=== PATIENT | female | born 1995 | race Caucasian/White ===

== ENCOUNTER 2017-11-07 18:23 | Emergency (ER) | payer SELFPAY ==
[~2017-11-07] VITALS: Ht 165.1 cm; Wt 90.9 kg
[~2017-11-07 18:23] MED LIST: ADVAIR IH; ALBUTEROL0.09 MG/A4 IH; GUAIFEN/CODEIN120 ML PO; MOTRIN800 MG PO; OMEPRAZOLE MAGN20 MG PO; PROVENTIL0.09 MG/A1; RELION VEN0.09 MG/Ac IH; SINGULAIR10 MG PO; ULTRAM 50MG TAB50 MG PO; ULTRAM50 MG PO; VENTOLIN0.09 MG IH; ZYRTEC 10MG10 MG PO
[2017-11-07 20:35] VITALS: BP 148/84
== END 2017-11-07 20:35 | disposition home or self-care (01) ==
LOC: ED 18:23
DX: S69.92XA Unspecified injury of left wrist, hand and finger(s), initial encounter (principal); W19.XXXA Unspecified fall, initial encounter

== ENCOUNTER 2020-12-01 01:03 | Emergency (ER) | payer SELFPAY ==
[2020-12-01 02:20] LABS: BASO # 0.05 (0.02-0.10); EOS # 0.11 (0.04-0.40); EOS % 0.8 % (1.0-5.0); HEMATOCRIT 41.4 % (37.0-47.0); HEMOGLOBIN 13.5 g/dL (12.5-16.0); LYMPH# 4.68 (1.50-4.00); MEAN CELL VOLUME 84 fl (78-100); MEAN CORPUSCULAR HEMOGLOBIN 27 pg (27-31); MEAN CORPUSCULAR HGB CONC 33 g/dL (33-37); MEAN PLATELET VOLUME 9.6 fl (7.4-10.4); MONO # 0.95 (0.20-0.80); NEU # 8.46 (1.40-6.50); RED BLOOD COUNT 4.95 M/mm3 (4.10-5.30); RED CELL DISTRIBUTION WIDTH 13.6 % (11.5-14.5); WHITE BLOOD COUNT 14.3 K/mm3 (4.8-10.8)
[2020-12-01 02:26] LABS: ALBUMIN 3.7 g/dL (3.5-5.0); POTASSIUM 3.8 mmol/L (3.5-5.1); SODIUM 140 mmol/L (136-145)
[2020-12-01 02:27] LABS: CALCIUM 8.9 mg/dL (8.3-10.5)
[2020-12-01 02:29] LABS: GLUCOSE 114 mg/dL (65-105); TOTAL PROTEIN 6.6 g/dL (6.4-8.3)
[2020-12-01 02:30] LABS: CARBON DIOXIDE 22 mmol/L (22-29)
[2020-12-01 02:31] LABS: TOTAL BILIRUBIN 0.1 mg/dL (0.2-1.2)
[2020-12-01 02:34] LABS: AST-SGOT 8 U/L (5-34)
[2020-12-01 02:36] LABS: ALT/SGPT 9 U/L (0-55)
[2020-12-01 02:37] LABS: PLATELET COUNT 503 K/mm3 (130-400)
[2020-12-01 02:45] LABS: URINE APPEARANCE CLEAR; URINE COLOR YELLOW
[2020-12-01 02:45] LABS: TROPONIN-I < 0.03 ng/mL (<0.030)
[2020-12-01 02:46] LABS: URINE BILIRUBIN NEGATIVE (NEGATIVE); URINE BLOOD NEGATIVE (NEGATIVE); URINE GLUCOSE NEGATIVE (NEGATIVE); URINE KETONE NEGATIVE (NEGATIVE); URINE LEUKOCYTE ESTERASE 1+ (NEGATIVE); URINE NITRATE NEGATIVE (NEGATIVE); URINE PROTEIN(semi-quant) TRACE mg/dL (NEGATIVE); URINE UROBILINOGEN NORMAL (NORMAL)
[2020-12-01 03:30] VITALS: BP 112/68
== END 2020-12-01 03:30 | disposition home or self-care (01) ==
LOC: ED 01:03
PROVIDERS: Family Medicine
DX: R07.89 Other chest pain (principal); J45.909 Unspecified asthma, uncomplicated; F41.0 Panic disorder [episodic paroxysmal anxiety]; F17.210 Nicotine dependence, cigarettes, uncomplicated
CPT/HCPCS: J1885

== ENCOUNTER → 2023-07-09 | Outpatient (CLI) | payer BC ==
[2023-07-09 14:04] LABS: BASO # 0.02 K/mm3 (0.02-0.10); EOS # 0.14 K/mm3 (0.04-0.40); EOS % 1.3 % (1.0-5.0); HEMOGLOBIN 13.7 g/dL (12.5-16.0); LYMPH# 2.73 K/mm3 (1.50-4.00); MEAN CELL VOLUME 84 fl (78-100); MEAN CORPUSCULAR HEMOGLOBIN 27 pg (27-31); MEAN CORPUSCULAR HGB CONC 32 g/dL (33-37); MEAN PLATELET VOLUME 9.1 fl (7.4-10.4); NEU # 7.16 K/mm3 (1.40-6.50); PLATELET COUNT 485 K/mm3 (130-400); RED BLOOD COUNT 5.14 M/mm3 (4.10-5.30); RED CELL DISTRIBUTION WIDTH 13.5 % (11.5-14.5); WHITE BLOOD COUNT 10.7 K/mm3 (4.8-10.8)
[2023-07-09 14:10] LABS: ALBUMIN 4.1 g/dL (3.5-5.0)
[2023-07-09 14:12] LABS: CALCIUM 9.2 mg/dL (8.3-10.5)
[2023-07-09 14:13] LABS: TOTAL PROTEIN 7.4 g/dL (6.4-8.3)
[2023-07-09 14:53] LABS: TOTAL BILIRUBIN 0.3 mg/dL (0.2-1.2)
[2023-07-09 15:00] LABS: URINE APPEARANCE CLOUDY (CLEAR); URINE BILIRUBIN NEGATIVE (NEGATIVE); URINE BLOOD TRACE-LYSED (NEGATIVE); URINE COLOR YELLOW (YELLOW); URINE GLUCOSE NEGATIVE (NEGATIVE); URINE KETONE NEGATIVE (NEGATIVE); URINE NITRATE NEGATIVE (NEGATIVE); URINE PROTEIN(semi-quant) NEGATIVE (NEGATIVE)
[2023-07-09 15:01] LABS: URINE LEUKOCYTE ESTERASE 1+ (NEGATIVE)
[2023-07-09 15:02] LABS: URINE MUCUS PRESENT (NOT PRESENT)
== END ==
LOC: LAB 13:48
PROVIDERS: Nurse Practitioner Family
DX: R10.9 Unspecified abdominal pain (principal)

== ENCOUNTER 2024-05-17 19:06 | Emergency (ER) | payer SELFPAY ==
[2024-05-17] MEDS ORDERED: NS 1,000 ML IV SCH (19:15)
[2024-05-17] MEDS ORDERED: Ondansetron 4 MG/2 ML VIAL IV ONE (19:45)
[2024-05-17] MEDS ORDERED: Ketorolac 30 MG/ML VIAL IV ONE (19:45)
[2024-05-17 19:52] LABS: BASO # 0.02 K/mm3 (0.02-0.10); EOS # 0.01 K/mm3 (0.04-0.40); EOS % 0.1 % (1.0-5.0); HEMATOCRIT 39.5 % (37.0-47.0); LYMPH# 2.09 K/mm3 (1.50-4.00); MEAN CELL VOLUME 81 fl (78-100); MEAN CORPUSCULAR HEMOGLOBIN 27 pg (27-31); MEAN CORPUSCULAR HGB CONC 33 g/dL (33-37); MEAN PLATELET VOLUME 8.9 fl (7.4-10.4); MONO # 0.91 K/mm3 (0.20-0.80); NEU # 13.43 K/mm3 (1.40-6.50); PLATELET COUNT 447 K/mm3 (130-400); RED CELL DISTRIBUTION WIDTH 14.5 % (11.5-14.5); WHITE BLOOD COUNT 16.6 K/mm3 (4.8-10.8)
[2024-05-17 19:59] LABS: ALBUMIN 4.1 g/dL (3.5-5.0); SODIUM 136 mmol/L (136-145)
[2024-05-17 20:01] LABS: CALCIUM 9.3 mg/dL (8.3-10.5)
[2024-05-17 20:02] LABS: GLUCOSE 100 mg/dL (65-105); TOTAL PROTEIN 7.6 g/dL (6.4-8.3)
[2024-05-17 20:03] LABS: CARBON DIOXIDE 20 mmol/L (22-29)
[2024-05-17 20:04] LABS: TOTAL BILIRUBIN 0.5 mg/dL (0.2-1.2)
[2024-05-17 20:07] LABS: AST-SGOT 16 U/L (5-34)
[2024-05-17 20:08] LABS: ALT/SGPT 23 U/L (0-55)
[2024-05-17 20:18] LABS: TROPONIN-I < 0.030 ng/mL (0.00-0.033)
[2024-05-17] MEDS ORDERED: Iohexol 300 - 100 ML VIAL IV ONE (20:58)
[2024-05-17] MEDS ORDERED: Acetaminophen/Codeine 300-30 MG TAB PO ONE (21:00)
[2024-05-17] MEDS ORDERED: cefTRIAXone 1 G in Water For Injection,Sterile 10 ML IV ONE (21:00)
[2024-05-17] MEDS ORDERED: KETOROLAC10 MG PO (21:30)
[2024-05-17] MEDS ORDERED: AMOXICILLIN AND1 TA2 PO (21:30)
[2024-05-17] MEDS ORDERED: ZOFRAN ODT4 MG PO (21:30)
[2024-05-17 21:57] VITALS: BP 125/66
== END 2024-05-17 21:57 | disposition home or self-care (01) ==
LOC: ED 19:06
PROVIDERS: Family Medicine
DX: R07.89 Other chest pain (principal); A41.9 Sepsis, unspecified organism; E66.01 Morbid (severe) obesity due to excess calories
CPT/HCPCS: J0696; J1885; J2405; J7030; Q9967